=== PATIENT | male | born 1995 | race Caucasian/White ===

== ENCOUNTER 2020-08-05 08:23 | Emergency (ER) | payer OTHER ==
[~2020-08-05] VITALS: Ht 177.8 cm; Wt 90.9 kg
[2020-08-05 08:32] VITALS: Ht 177.8 cm; Wt 90.9 kg
[2020-08-05 09:02] VITALS: BP 165/104
[2020-08-05] MEDS ORDERED: CEPHALEXIN500 M1 PO (10:10)
[2020-08-05] MEDS ORDERED: DICLOFENAC SODI50 MG PO (10:10)
== END 2020-08-05 10:28 | disposition home or self-care (01) ==
LOC: D.ER 08:23
DX: S90.32XA Contusion of left foot, initial encounter (principal); S97.82XA Crushing injury of left foot, initial encounter; S90.812A Abrasion, left foot, initial encounter; W20.8XXA Other cause of strike by thrown, projected or falling object, initial encounter; Y93.9 Activity, unspecified; Y92.9 Unspecified place or not applicable